=== PATIENT | male | born 1940 | race Hispanic/Latino ===

== ENCOUNTER → 2017-03-15 | Outpatient (CLI) | payer MEDICARE ==
[~2017-03-15] MED LIST: ATORVASTATIN CA20 MG PO; FINASTERIDE5 MG PO; FUROSEMIDE INJ 10 MG/ML 4 ML VIAL ONE; IBUPROFEN600 MG PO; METFORMIN HCL500 MG PO; PIOGLITAZONE30 MG PO; TAMSULOSIN HCL0.4 MG PO
--- NOTE | 2017-03-15 16:34 | Diagnostic Imaging Report ---
Renal Scan with Lasix Washout Clinical information: 76 M with chronic flank pain and renal calculi Technique: Following intravenous administration of 10 mCi of Tc-99m MAG3, dynamic images of the kidneys in the posterior projection were obtained through 40 minutes. Lasix 40 mg was administered intravenously at 10 minutes post injection of the tracer. Report: Left kidney: Perfusion of the left kidney is prompt. The kidney has a normal reniform shape. Extraction of tracer from the blood pool is mildly decreased but likely normal for age. Clearance of tracer from the renal parenchyma begins promptly but is not complete by the end of the study. The pelvicalyceal system is not dilated. Increased pooling of tracer within the pelvicalyceal system is seen. Drainage of tracer from the pelvicalyceal system is prompt and adequate prior to administration of Lasix. No significant stasis of tracer is seen within the left ureter. Right kidney: Perfusion to the right kidney is prompt. The right kidney has a reniform shape with thinning of the renal cortex. It is not elongated.. Extraction of tracer by the renal parenchyma is decreased but likely normal for age. Clearance of tracer from the renal parenchyma is prompt. The pelvicalyceal system is mildly dilated. Increased pooling of tracer within the pelvicalyceal system is seen. No net drainage of tracer from the pelvicalyceal system is prompt is seen prior to administration of Lasix. Washout of tracer from the pelvicalyceal system following administration of Lasix is slow with a T-1/2 of 24 minutes (normal less than 15 minutes). No significant stasis of tracer is seen within the right ureter. Differential renal function: The left kidney contributes 57% of total renal function and the right kidney contributes 43% (normal 43-57%). Impression: 1. Scan evidence of mild medical renal disease in the left kidney although may be normal for age. No hydronephrosis is present. No physiologically significant obstruction of the renal collecting system is present. 2. Mild medical renal disease in the right kidney. The loss of renal parenchyma with cortical thinning accounts for the differential function of 43%. Mild hydronephrosis is present. Lasix washout of 24 mins is indeterminate for physiologically significant obstruction at the UPJ. Given thinning of the renal cortex, significant obstruction is suspected. Signed by: Dr. Bailey Chang M.D. on 03/15/2017 4:31 PM
== END ==
LOC: NM 11:38
PROVIDERS: ATTEND Urology
DX: N13.30 Unspecified hydronephrosis (principal); N20.1 Calculus of ureter
CPT/HCPCS: 78708; A9562; J1940

== ENCOUNTER → 2017-04-17 | Day surgery (SDC) | payer MEDICARE ==
[2017-04-15 13:23] LABS: BASOPHILS # (AUTO) 0.1 (0.0-0.1); BASOPHILS % 0.6 % (0.0-1.0); EOSINOPHILS # (AUTO) 0.1 (0.0-0.4); EOSINOPHILS % 1.2 % (0.0-6.0); HEMATOCRIT 41.4 % (38.2-49.6); HEMOGLOBIN 13.2 g/dL (14.0-18.0); LYMPHOCYTES # (AUTO) 2.1 (1.0-3.2); LYMPHOCYTES % 27.4 % (18.0-39.1); MEAN CORPUSCULAR HEMOGLOBIN 28.6 pg (28-32); MEAN CORPUSCULAR HGB CONC 31.9 g/dL (31-35); MEAN CORPUSCULAR VOLUME 89.6 fL (81-99); MONOCYTES # (AUTO) 0.6 (0.2-0.8); MONOCYTES % 7.1 % (4.4-11.3); NEUTROPHILS # (AUTO) 4.9 (2.1-6.9); NEUTROPHILS % 63.2 % (38.7-80.0); PLATELET COUNT 212 x10e3/uL (140-360); RED BLOOD COUNT 4.62 x10e6/uL (4.3-5.7)
[2017-04-15 13:40] LABS: ANION GAP 11.6 mmol/L (8-16); BLOOD UREA NITROGEN 18 mg/dL (7-26); BUN/CREATININE RATIO 18 (6-25); CALCIUM 10.9 mg/dL (8.4-10.2); CARBON DIOXIDE 26 mmol/L (22-29); CHLORIDE 109 mmol/L (98-107); EST GLOMERULAR FILTRATION RATE > 60 ML/MIN (60-); GLUCOSE 118 mg/dL (74-118); POTASSIUM 4.6 mmol/L (3.5-5.1); SODIUM 142 mmol/L (136-145)
--- NOTE | 2017-04-15 14:44 | Diagnostic Imaging Report ---
PROCEDURE: Frontal and lateral views of the chest. COMPARISON: None. INDICATIONS: KIDNEY STONE SURGERY SATURDAY FINDINGS: Lines/tubes: None. Lungs: The lungs are well inflated. Mild retrocardiac opacification. Pleura: There is no pleural effusion or pneumothorax. Heart and mediastinum: The heart and the mediastinum are normal. Bones: No acute bony abnormality. IMPRESSION: Mild retrocardiac opacification, representing atelectasis and/or pneumonia. Dictated by: Oscar Tyler M.D. on 04/15/2017 at 14:53 Electronically approved by: Oscar Tyler M.D. on 04/15/2017 at 14:53
[~2017-04-17] MED LIST changes: +ASPERCREME177.4 ML TOP; +CEFTRIAXONE SOD 1 GM VIAL ONE; +CORTISONE CREAM TOP; +DEXAMETHASONE SOD PHOS INJ 4 MG/ML VIAL ONE; +FENTANYL CITRATE/PF 100MCG/2 ML INJ ONE; +FIBER TABS625 MG PO; -FUROSEMIDE INJ 10 MG/ML 4 ML VIAL ONE; +IOPAMIDOL 610MG/1ML 300 MG/ML VIAL IV ONE; +LIDOCAINE HCL 2% LOCAL INJ 5 ML SDV VIAL INJ ONE; +LYRICA25 MG PO; +MELATONIN3 M1 PO; +MORPHINE SULFATE 2 MG/ML SYR ONE; +ONDANSETRON HCL INJ 2 MG/ML VIAL ONE; +POLYETHYLENE GL17 GM PO; +PREDNISOLO15 MG/5 ML OP; +PROPOFOL IV EMULSION 10 MG/ML 20 ML VIAL ONE; +SEVOFLURANE INHAL SOLN 250 ML PEN BTL ONE; +SINEMET 25-1001 EACH PO; +TRIAMCINOLONE A15 G1 TOP
--- NOTE | 2017-04-17 06:10 | Diagnostic Imaging Report ---
ABDOMEN-1VIEW (KUB) Clinical history: Kidney stone Technique: AP view abdomen Comparison: 10/06/2010 Findings: Abdomen: Nonobstructive bowel gas pattern. Other: Cluster of stones over the right lower pole, the four largest measuring 6-9 mm and one 2 mm stone. Possible residual tiny stones over the right superior pole, improved from prior. 9 mm stone projects over the expected right proximal ureter. No left renal stones appreciated. There are multiple presumed pelvic phleboliths, increased from prior. Impression: Cluster of stones over the right lower kidney. 9 mm stone projects over the expected right proximal ureter. Correlate with noncontrast CT renal stone protocol, as indicated. Signed by: Dr Azalia Archuleta MD on 04/17/2017 6:06 AM
--- NOTE | 2017-04-17 10:55 | Operative Report ---
DATE OF PROCEDURE: April 17, 2017 PREOPERATIVE DIAGNOSIS: Right kidney stones. POSTOPERATIVE DIAGNOSIS: Right kidney stones. PROCEDURES 1. Staged shock wave lithotripsy. 2. Supervision of fluoroscopy. ANESTHESIA: General. ESTIMATED BLOOD LOSS: Minimal. COMPLICATIONS: None. INDICATIONS: Mr. West is a very pleasant 76-year-old male with multiple kidney stones. He and I had a long discussion of alternatives, risks, and benefits including doing nothing, shock wave lithotripsy, ureteroscopy, percutaneous surgery, and open surgery. He voiced understanding of the options, alternatives, risks and benefits and elected to proceed. DESCRIPTION OF PROCEDURE: After informed consent was obtained, the patient was taken to the operative suite, placed supine on the operating table, and underwent general anesthesia by the anesthesia service. Stone was localized in the X, Y, and Z planes. A total of 3000 shocks were delivered to the stone. The patient tolerated the procedure well and was transported to the recovery room in excellent condition. SUPERVISION OF FLUOROSCOPY: I was present throughout the entire procedure and supervised fluoroscopy because no radiologist was present. Job#: [id number] [place]
== END | disposition home or self-care (01) ==
LOC: OR 05:06
PROVIDERS: ATTEND Urology
DX: N20.0 Calculus of kidney (principal); E11.9 Type 2 diabetes mellitus without complications; F32.9 Major depressive disorder, single episode, unspecified; N40.0 Benign prostatic hyperplasia without lower urinary tract symptoms; I49.3 Ventricular premature depolarization; Z01.810 Encounter for preprocedural cardiovascular examination; Z01.812 Encounter for preprocedural laboratory examination; Z01.818 Encounter for other preprocedural examination
CPT/HCPCS: 36415 ×2; 50590; 71046; 74018; 80048; 82948; 85025; 93005; J0696; J1100; J2001; J2270; J2405